=== PATIENT | male | born 1970 | race Caucasian/White ===

== ENCOUNTER 2017-03-17 09:56 | Inpatient (IN) | payer OTHER, MEDICAID ==
--- NOTE | 2017-03-17 10:03 | EDPHY ---
H & P Time Seen by Provider: 03/17/17 10:03 HPI/ROS: CHIEF COMPLAINT: pneumonia and not eating HISTORY OF PRESENT ILLNESS: Patient arrives from [facility] with a diagnosis of pneumonia but no chart is available for review. On speaking with the nursing home social worker, chest x-ray was obtained which apparently showed pneumonia. Order for IV antibiotics but IV access unable to be obtained. According to her the [id number] requested evaluation for dehydration as the patient has not been eating or drinking well over the past week. Further history and review of systems unavailable as the patient is nonverbal. PAST MEDICAL HISTORY: [place]'s chorea, anxiety, dysphagia, L hand contracture Social history: Resident at [facility] General Appearance: Alert spontaneously looks around. Eyes: No scleral icterus. ENT, Mouth: Dry mucous membranes. Respiratory: Normal respiratory effort, breath sounds equal, lungs are clear to auscultation. Cardiovascular: Regular rate and rhythm. Gastrointestinal: Abdomen is soft and non tender. Neurological: Patient is alert and looks around but is nonverbal. Moves all extremities. Skin: Warm and dry, no rashes. Musculoskeletal: Left arm contracture. Psychiatric: Unable, nonverbal Emergency Department course/MDM: Discussed with Lisa Metcalf from [facility] at 1014. Plan for chest x-ray and labs to include electrolytes. 1149: Discussed with Genna LOJA. Sent for admission secondary to can't eat, aspirating, needs plan for IV fluids or feeding tube prior to going back to [facility]. Noted streaky infiltrates on left chest Xray, Na 156; likely aspiration pneumonia and hypovolemia due to dehydration and decreased oral intake. Plan for IV ertapenem for probable aspiration pneumonia, does not have sepsis, elevated sodium likely due to dehydration. Constitutional: Initial Vital Signs Temperature (C) 36.6 C 03/17/17 09:56 Heart Rate 95 03/17/17 09:56 Respiratory Rate 16 03/17/17 09:56 Blood Pressure 140/90 H 03/17/17 09:56 O2 Sat (%) 93 03/17/17 09:56 O2 Delivery Mode Room Air Allergies/Adverse Reactions: No Known Allergies Allergy (Unverified 03/17/17 10:10) Home Medications: Medication Instructions Recorded Acetaminophen [Tylenol 325mg (*)] 650 mg PO BID 03/17/17 Cholecalciferol (Vitamin D3) 50,000 unit PO .MONTHLY 03/17/17 [Optimal D3] Haloperidol [Haldol 5 MG (*)] 5 mg PO DAILY 03/17/17 Hydrocodone/Acetaminophen [[place] 1 each PO Q4 PRN 03/17/17 5/325 (*)] Loratadine [Claritin] 10 mg PO DAILY PRN 03/17/17 Mineral Oil/Petrolatum,White 1 karen TP BID 03/17/17 [Eucerin Cream (*)] Ns [Ns *For Sepsis Order Set Only*] 0 ml IV CONT 03/17/17 cefTRIAXone [Rocephin 1 gm Vial 1 gm IV DAILY 03/17/17 (RX)ro] Medical Decision Making - Diagnostics Imaging Results: Imaging Impressions Chest X-Ray 03/17/17 10:17 Impression: Bronchitis with streaky left perihilar opacities that could be related to atelectasis or pneumonia. Differential Diagnosis: Considered multiple diagnoses including but not limited to UTI, pneumonia, metabolic abnormality, stroke or seizure. Consult/Admit Bed Type: [place] [id number] - Data Points Laboratory Results: Laboratory Results 03/17/17 10:37 03/17/17 10:37 03/17/17 03/17/17 03/17/17 11:20 10:42 10:37 WBC RBC Hgb Hct MCV MCH MCHC RDW Plt Count MPV Neut % (Auto) Lymph % (Auto) [place] % (Auto) Eos % (Auto) Baso % (Auto) Nucleat RBC Rel Count Absolute Neuts (auto) Absolute Lymphs (auto) Absolute Monos (auto) Absolute Eos (auto) Absolute Basos (auto) Absolute Nucleated RBC Immature Gran % Immature Gran # PT 14.1 SEC SEC (12.0-15.0) INR 1.10 (0.83-1.16) APTT 28.6 SEC SEC (23.0-38.0) VBG Lactic Acid 0.9 mmol/L mmol/L (0.7-2.1) Sodium Potassium Chloride Carbon Dioxide Anion Gap BUN Creatinine Estimated GFR Glucose Calcium Total Bilirubin Urine Color YELLOW Urine Appearance CLEAR Urine pH 5.0 (5.0-7.5) Ur Specific [place] 1.031 H (1.002-1.030) Urine Protein 1+ H (NEGATIVE) Urine Ketones NEGATIVE (NEGATIVE) Urine Blood NEGATIVE (NEGATIVE) Urine Nitrate NEGATIVE (NEGATIVE) Urine Bilirubin NEGATIVE (NEGATIVE) Urine Urobilinogen 2.0 EU H EU (0.2-1.0) Ur Leukocyte Esterase NEGATIVE (NEGATIVE) Urine RBC 1-3 /hpf /hpf (0-3) Urine WBC 1-3 /hpf /hpf (0-3) Ur Epithelial Cells NONE SEEN /lpf /lpf (NONE-1+) Urine Mucus 1+ /lpf /lpf (NONE-1+) Urine Glucose NEGATIVE (NEGATIVE) 03/17/17 03/17/17 10:37 10:37 WBC 10.50 10^3/uL H 10^3/uL (3.80-9.50) RBC 5.01 10^6/uL 10^6/uL (4.40-6.38) Hgb 15.0 g/dL g/dL (13.7-17.5) Hct 45.1 % % (40.0-51.0) MCV 90.0 fL fL (81.5-99.8) MCH 29.9 pg pg (27.9-34.1) MCHC 33.3 g/dL g/dL (32.4-36.7) RDW 12.0 % % (11.5-15.2) Plt Count 260 10^3/uL 10^3/uL (150-400) MPV 9.8 fL fL (8.7-11.7) Neut % (Auto) 81.0 % H % (39.3-74.2) Lymph % (Auto) 12.1 % L % (15.0-45.0) Carolina % (Auto) 6.2 % % (4.5-13.0) Eos % (Auto) 0.1 % L % (0.6-7.6) Baso % (Auto) 0.2 % L % (0.3-1.7) Nucleat RBC Rel Count 0.0 % % (0.0-0.2) Absolute Neuts (auto) 8.51 10^3/uL H 10^3/uL (1.70-6.50) Absolute Lymphs (auto) 1.27 10^3/uL 10^3/uL (1.00-3.00) Absolute Monos (auto) 0.65 10^3/uL 10^3/uL (0.30-0.80) Absolute Eos (auto) 0.01 10^3/uL L 10^3/uL (0.03-0.40) Absolute Basos (auto) 0.02 10^3/uL 10^3/uL (0.02-0.10) Absolute Nucleated RBC 0.00 10^3/uL 10^3/uL (0-0.01) Immature Gran % 0.4 % % (0.0-1.1) Immature Gran # 0.04 10^3/uL 10^3/uL (0.00-0.10) PT INR APTT VBG Lactic Acid Sodium 156 mEq/L H mEq/L (134-144) Potassium 3.8 mEq/L mEq/L (3.5-5.2) Chloride 118 mEq/L H mEq/L (97-110) Carbon Dioxide 25 mEq/l mEq/l (22-31) Anion Gap 13 mEq/L mEq/L (8-16) BUN 22 mg/dL mg/dL (7-23) Creatinine 0.7 mg/dL mg/dL (0.7-1.3) Estimated GFR > 60 Glucose 100 mg/dL mg/dL (70-100) Calcium 9.2 mg/dL mg/dL (8.5-10.4) Total Bilirubin 1.2 mg/dL mg/dL (0.1-1.4) Urine Color Urine Appearance Urine pH Ur Specific [place]kinson Urine Protein Urine Ketones Urine Blood Urine Nitrate Urine Bilirubin Urine Urobilinogen Ur Leukocyte Esterase Urine RBC Urine WBC Ur Epithelial Cells Urine Mucus Urine Glucose Medications Given: Discontinued Medications Ertapenem 1 gm/ Sodium (Chloride) 100 mls @ 200 mls/hr IV EDNOW ONE PRN Reason: Protocol Stop: 03/17/17 12:31 Last Admin: 03/17/17 12:37 Dose: 100 mls Sodium Chloride (Ns) 1,000 mls @ 0 mls/hr IV ONCE ONE; Wide Open PRN Reason: Protocol Stop: 03/17/17 12:11 Last Admin: 03/17/17 12:25 Dose: 1,000 mls Departure - Departure Disposition: [facility] Inpatient Acute Clinical Impression: Aspiration pneumonia Qualifiers: Aspiration pneumonia type: unspecified Laterality: left Lung location: unspecified part of lung Qualified Code(s): J69.0 - Pneumonitis due to inhalation of food and vomit Condition: Good
[2017-03-17 10:48] LABS: % IMMATURE GRANULYOCYTES 0.4 % (0.0-1.1); ABSOLUTE IMMATURE GRANULOCYTES 0.04 10^3/uL (0.00-0.10); ADD DIFF? NO; ADD MORPH? NO; ADD SCAN? NO; ATYPICAL LYMPHOCYTE FLAG 50 (0-99); FRAGMENT RBC FLAG 0 (0-99); HEMATOCRIT 45.1 % (40.0-51.0); LEFT SHIFT FLG 20 (0-99); LIPEMIA HEMOLYSIS FLAG 80 (0-99); MEAN CELL HEMOGLOBIN 29.9 pg (27.9-34.1); MEAN CELL HEMOGLOBIN CONCENTR. 33.3 g/dL (32.4-36.7); MEAN PLATELET VOLUME 9.8 fL (8.7-11.7); PLATELET CLUMPS FLAG 0 (0-99); PLATELET COUNT 260 10^3/uL (150-400); RED BLOOD CELL COUNT 5.01 10^6/uL (4.40-6.38)
[2017-03-17 10:55] LABS: INR 1.1 (0.83-1.16); PROTIME(PATIENT) 14.1 SEC (12.0-15.0)
[2017-03-17 10:56] LABS: APTT 28.6 SEC (23.0-38.0)
[2017-03-17 11:20] LABS: BILIRUBIN,TOTAL 1.2 mg/dL (0.1-1.4); CALCIUM 9.2 mg/dL (8.5-10.4); CARBON DIOXIDE 25 mEq/l (22-31); CHLORIDE 118 mEq/L (97-110); CREATININE 0.7 mg/dL (0.7-1.3); GLOMERULAR FILTRATION RATE > 60; GLUCOSE 100 mg/dL (70-100); SODIUM 156 mEq/L (134-144)
[2017-03-17 11:28] LABS: ANION GAP 13 mEq/L (8-16); POTASSIUM 3.8 mEq/L (3.5-5.2)
[2017-03-17] MEDS ORDERED: ERTAPENEM 1 GM in NS 100 ML IV ONE (12:02)
[2017-03-17 12:07] LABS: COLOR YELLOW; LEUKOCYTE ESTERASE,URINE NEGATIVE (NEGATIVE); NITRITE,URINE NEGATIVE (NEGATIVE)
[2017-03-17 12:09] LABS: MUCUS 1+ /lpf (NONE-1+)
[2017-03-17] MEDS ORDERED: NS 1,000 ML IV ONE (12:10)
[2017-03-17] MEDS ORDERED: ONDANSETRON 4 MG/2 ML VIAL IVP PRN (13:21)
[2017-03-17] MEDS ORDERED: ACETAMINOPHEN 325 MG TAB PO PRN (13:21)
--- NOTE | 2017-03-17 14:09 | GHP ---
[f rep st] HISTORY AND PHYSICAL DATE OF ADMISSION: 03/17/2017 CHIEF COMPLAINT: Poor p.o. intake. 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 He has known dysphagia and is on a pureed diet with honey thick liquids. They did a chest x-ray at [facility] and thought he had aspiration pneumonia. They prescribed IV antibiotics, so they could not get IV access at [facility], so they sent him to the emergency room. Reportedly, his power of state attorney, was also concern for dehydration, as he has had poor p.o. intake for the last week. The patient is completely nonverbal, and I cannot get any further history from him at this [facility]. It is unclear whether or not there has been any recent cough. I do not believe there has been a fever. PAST MEDICAL HISTORY: 1. [place]'s chorea. 2. Dysphagia, on pureed diet with honey thick liquids. MEDICATIONS: Please see computer record for full detailed list. ALLERGIES: No known drug allergies. SOCIAL HISTORY: At [facility], per records, since 2009. He is a DNR. Unknown smoking and alcohol history, but presumably none since he has been at [facility]. REVIEW OF SYSTEMS: Review of systems is unobtainable due to patient's nonverbal status. FAMILY HISTORY: Unobtainable due to patient's nonverbal status. Presumably there would be a family history of [place]'s chorea. PHYSICAL EXAMINATION: GENERAL: This is a well-developed, thin male, with dramatic chorea type move ments, nonverbal, agitated, not following commands. VITAL SIGNS: Temp is 36.6, pulse 86, blood pressure 127/89, satting 93% on room air. EYES: Normal conjunctivae. Pupils react to light. ENT: Normal ears and nose. Unable to assess h earing, unable to assess oropharynx as his jaw is clenched. NECK: Trachea midline. No thyromegaly . CHEST: Normal effort. Lungs clear to auscultation bilaterally. CARDIOVASCULAR: Regular rate and rhythm. No murmur. No lower extremity edema. ABDOMEN: Soft, nontender. No hepatosplenomegaly. SKIN: Warm, dry, intact . No rash. MUSCULOSKELETAL: No cyanosis or clubbing. NEURO: He is flailing extremities, not fol lowing commands. Unable to assess cranial nerves, as he does not follow commands. Unable to assess sensation due to nonverbal status. PSYCH: He appears agitated, disoriented. I do not believe he is currently interacting with me appropriately in any way. LABS: White count 10.5, hematocrit 45.0, platelets 260. Sodium 156, potassium 3.8, chloride 118, b icarb 25, BUN 22, creatinine 0.7, glucose 100. Chest x-ray is negative. MEDICAL RECORD REVIEW: He presents from [facility] with records, it appears he does follow a modifi ed diet. They ordered ceftriaxone for IV antibiotics regarding his pneumonia. His code status at [facility] is DNR. ASSESSMENT AND PLAN: 1. Hypernatremia secondary to hypovolemia. The goal will be very slow correction. We will start w ith IV normal saline to correct his hypovolemia, and then if hyponatremia persists, can switch to anderson lf-normal or D5 water once euvolemic state is achieved. We will follow q.4 hour basic metabolic nicolas els. Goal is to correct around 8 mEq/L in the first 24 hours. 2. Possible aspiration pneumonia. Chest x-ray is not terribly remarkable, although, very high risk for an aspiration type event. We will continue IV Invanz. 3. Dysphagia. On a puree diet with honey thickened liquids at baseline. We will consult speech th leslie. I am highly concerned for his ongoing ability to maintain adequate oral intake, given his pr esentation of severe hypernatremia. If n.p.o. is recommended by speech therapy, we will need to inv olve palliative care and discussed with his power of state attorney whether or not a PEG tube and artifici al nutrition where at any point consistent with his long-term wishes. 4. 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 CODE STATUS: DNR. ADMISSION STATUS: We will admit to inpatient as he is medically complex. Anticipate greater than 2 midnights. DVT PROPHYLAXIS: He is high risk. We will place on subcu Lovenox. /[id number]/MODL
[2017-03-17] MEDS: NS 1,000 ML IV SCH ×2 (14:44→23:45)
[2017-03-17] MEDS ORDERED: NON-FORMULARY NEW DRUG (Loratadine [Claritin] 10 MG) PO PRN (15:54)
[2017-03-17] MEDS ORDERED: HYDROCODONE/APAP 5/325 TAB PO PRN (15:54)
[2017-03-17 16:10] LABS: ANION GAP 11 mEq/L (8-16); CALCIUM 8.7 mg/dL (8.5-10.4); CARBON DIOXIDE 24 mEq/l (22-31); CHLORIDE 119 mEq/L (97-110); CREATININE 0.7 mg/dL (0.7-1.3); GLOMERULAR FILTRATION RATE > 60; GLUCOSE 95 mg/dL (70-100); POTASSIUM 3.9 mEq/L (3.5-5.2); SODIUM 154 mEq/L (134-144)
[2017-03-17] MEDS ORDERED: CETIRIZINE 10 MG TAB PO PRN (16:27)
[2017-03-17 20:57] LABS: ANION GAP 9 mEq/L (8-16); CALCIUM 8.9 mg/dL (8.5-10.4); CARBON DIOXIDE 25 mEq/l (22-31); CHLORIDE 119 mEq/L (97-110); CREATININE 0.7 mg/dL (0.7-1.3); GLOMERULAR FILTRATION RATE > 60; GLUCOSE 98 mg/dL (70-100); POTASSIUM 3.8 mEq/L (3.5-5.2); SODIUM 153 mEq/L (134-144)
[2017-03-17] MEDS: EUCERIN/HYDROCERIN CREAM 120GM JAR TP SCH (21:43)
[2017-03-17] MEDS: ACETAMINOPHEN 325 MG TAB PO SCH (21:43)
[2017-03-18 02:13] LABS: ANION GAP 11 mEq/L (8-16); CARBON DIOXIDE 22 mEq/l (22-31); CHLORIDE 119 mEq/L (97-110); CREATININE 0.6 mg/dL (0.7-1.3); GLOMERULAR FILTRATION RATE > 60; GLUCOSE 91 mg/dL (70-100); POTASSIUM 4.2 mEq/L (3.5-5.2); SODIUM 152 mEq/L (134-144)
[2017-03-18 05:25] LABS: % IMMATURE GRANULYOCYTES 0.8 % (0.0-1.1); ABSOLUTE IMMATURE GRANULOCYTES 0.07 10^3/uL (0.00-0.10); ADD DIFF? NO; ADD MORPH? NO; ADD SCAN? NO; ATYPICAL LYMPHOCYTE FLAG 60 (0-99); FRAGMENT RBC FLAG 0 (0-99); HEMATOCRIT 40.6 % (40.0-51.0); HEMOGLOBIN 13.3 g/dL (13.7-17.5); LEFT SHIFT FLG 10 (0-99); LIPEMIA HEMOLYSIS FLAG 80 (0-99); MEAN CELL HEMOGLOBIN CONCENTR. 32.8 g/dL (32.4-36.7); MEAN CELL VOLUME 91.6 fL (81.5-99.8); MEAN PLATELET VOLUME 10.7 fL (8.7-11.7); PLATELET CLUMPS FLAG 0 (0-99); PLATELET COUNT 257 10^3/uL (150-400); RED BLOOD CELL COUNT 4.43 10^6/uL (4.40-6.38); RED CELL DISTRIBUTION WIDTH 11.9 % (11.5-15.2)
[2017-03-18 05:36] LABS: ANION GAP 8 mEq/L (8-16); CALCIUM 9.1 mg/dL (8.5-10.4); CARBON DIOXIDE 25 mEq/l (22-31); CHLORIDE 117 mEq/L (97-110); CREATININE 0.7 mg/dL (0.7-1.3); GLOMERULAR FILTRATION RATE > 60; GLUCOSE 87 mg/dL (70-100); POTASSIUM 4.1 mEq/L (3.5-5.2); SODIUM 150 mEq/L (134-144)
[2017-03-18] MEDS: ENOXAPARIN 40 MG/0.4 ML SYR SC SCH (08:08)
[2017-03-18] MEDS: HALOPERIDOL 5 MG TAB PO SCH (08:08)
[2017-03-18] MEDS: ACETAMINOPHEN 325 MG TAB PO SCH ×2 (08:08→20:20)
[2017-03-18] MEDS: EUCERIN/HYDROCERIN CREAM 120GM JAR TP SCH (10:17)
[2017-03-18] MEDS: ERTAPENEM 1 GM in NS 100 ML IV SCH (10:17)
[2017-03-18 12:30] LABS: ANION GAP 8 mEq/L (8-16); CALCIUM 8.5 mg/dL (8.5-10.4); CARBON DIOXIDE 23 mEq/l (22-31); CHLORIDE 116 mEq/L (97-110); CREATININE 0.5 mg/dL (0.7-1.3); GLOMERULAR FILTRATION RATE > 60; GLUCOSE 98 mg/dL (70-100); POTASSIUM 3.6 mEq/L (3.5-5.2); SODIUM 147 mEq/L (134-144)
--- NOTE | 2017-03-18 14:38 | HOSPPROG ---
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 * Dysphagia -pureed/honey thick diet -VFSS in am -palliative care consult - unclear if he has pre-determined wishes regarding possible PEG * Possible aspiration PNA -IV Invanz Subjective: Nonverbal Objective: Vital Signs Temp Pulse Resp BP Pulse Ox 36.6 C 62 20 124/78 H 95 03/18/17 08:11 03/18/17 08:11 03/18/17 08:11 03/18/17 08:11 03/18/17 08:11 Laboratory Results 03/18/17 04:57 03/18/17 12:06 03/17/17 03/18/17 03/19/17 05:59 05:59 05:59 Intake Total 1100 100 Balance 1100 100 PT 14.1 SEC (12.0-15.0) 03/17/17 10:37 INR 1.10 (0.83-1.16) 03/17/17 10:37 - Physical Exam Constitutional: no apparent distress, appears nourished, not in pain Cardiovascular: regular rate and rhythym, no murmur, rub, or gallop Respiratory: no respiratory distress, no rales or rhonchi, clear to auscultation Gastrointestinal: normoactive bowel sounds, soft, non-tender abdomen, no palpable masses Skin: no rashes or abrasions, no fluctuance, no induration Neurologic: No AAOx3 Psychiatric: encephalopathic (non-verbal, unable to assess, follows commands only inconsistently), anxious, No interacting appropriately, No agitated ICD10 Worksheet Patient Problems: Problems Problem Status Onset Aspiration pneumonia Acute
[2017-03-18] MEDS ORDERED: 1/2 NS 1,000 ML IV SCH (15:00)
[2017-03-19] MEDS: EUCERIN/HYDROCERIN CREAM 120GM JAR TP SCH ×3 (01:43→21:30)
[2017-03-19 05:53] LABS: ANION GAP 6 mEq/L (8-16); CALCIUM 8.8 mg/dL (8.5-10.4); CARBON DIOXIDE 22 mEq/l (22-31); CHLORIDE 115 mEq/L (97-110); CREATININE 0.6 mg/dL (0.7-1.3); GLOMERULAR FILTRATION RATE > 60; GLUCOSE 84 mg/dL (70-100); SODIUM 143 mEq/L (134-144)
[2017-03-19] MEDS: ERTAPENEM 1 GM in NS 100 ML IV SCH (08:48)
[2017-03-19] MEDS: ACETAMINOPHEN 325 MG TAB PO SCH ×2 (08:48→21:28)
[2017-03-19] MEDS: HALOPERIDOL 5 MG TAB PO SCH (08:48)
[2017-03-19] MEDS: ENOXAPARIN 40 MG/0.4 ML SYR SC SCH (08:48)
--- NOTE | 2017-03-19 10:31 | HOSPPROG ---
Hospitalist Progress Note Assessment/Plan: DIAGNOSES: -acute dehydration -poor oral intake related to advanced [place]'s chorea -question of possible aspiration pneumonia -nonverbal and really non communicative due to his neurologic disease PLANS: -at this time can stop IV fluids -will need to watch his oral fluid intake very carefully here, he may need to be manually fed. If he is unable to take in sufficient oral fluids may need to discuss with his power of recreation specialist whether there are previously determined wishes to have or avoid artificial feeding as in placement of a PEG tube -will continue empiric antibiotics for possible pneumonia at this time SUBJECTIVE: Entirely non communicative to his chronic neurologic disease so symptom assessment not possible OBJECTIVE Vitals reviewed: Stable without fever Exam: alert, seems aware of my presence but does not make eye contact Mild choreiform movements are present skin warm dry with good turgor color ok resps not labored lungs clear BSs heart regular abd soft nondistended, bowel sounds present limbs warm, no edema iv site ok Laboratory data: Sodium now normal, renal function stable Objective: Vital Signs Temp Pulse Resp BP Pulse Ox 37.0 C 54 L 18 106/66 94 03/19/17 08:30 03/19/17 08:30 03/19/17 08:30 03/19/17 08:30 03/19/17 08:30 Laboratory Results 03/18/17 04:57 03/19/17 05:22 03/18/17 03/19/17 03/20/17 06:59 06:59 06:59 Intake Total 1100 2450 Balance 1100 2450 PT 14.1 SEC (12.0-15.0) 03/17/17 10:37 INR 1.10 (0.83-1.16) 03/17/17 10:37 ICD10 Worksheet Patient Problems: Problems Problem Status Onset Aspiration pneumonia Acute
--- NOTE | 2017-03-19 15:42 | PDPCPN ---
Palliative Care Progress Note Assessment/Plan: Referring provider: Dr James Reason for consult: Complex medical decision making Symptom control HPI: Markus Nation is a 46 yo male with PMH Ysabel's disease admitted to the hospital for possible aspiration PNA. Started on IV antibiotics after outpt CXR with possible PNA. Hx of dysphagia on dysphagia diet. Speech following and unable to complete swallow eval due to patient positioning. At baseline bed bound, complete care, and non verbal. Palliative care consulted for complex medical decision making. Markus seen this morning. Non verbal but alert and appears comfortable, in no distress. Spoke with Genna Chambers and per her conversations with Markus 3 years ago his wish has always been for artificial nutrition if indicated. She states [place] has been trying aspiration precautions and altered diet with the hopes of avoiding a PEG tube for the past several months. She feels Markus would want a PEG tube if needed. Genna stated Markus has 1 brother who also has [place]'s and another brother who does not but lives out of state and only visits on occasion. She feels his quality of life is pretty good with having dementia but able to watch tv and listen to people. She states he does not verbally interact but sits up in a chair at [place] for long periods of time. Assessment: Physical: - Pain: appears comfortable - tylenol PRN - dysphagia: - speech following - on pureed with honey thick liquids - monitor for s/s of aspiration Emotional/psychological: calm. Non verbal Advanced Care Planning: Is patient decisional?: No Code Status: DNR POA: Guardian Genna Chambers. Plan: Suggest calorie count with strict aspiration precautions. If PEG is indicated than consult GI. Guardian can be reached at [phone] or email [email or web address]. Genna is out of town until Sunday. 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 Medication list reviewed ROS: unable to obtain Functional assessment: PPS: 30% Functional status: dependent on ADLs, IADLs Vital Signs Temp Pulse Resp BP Pulse Ox 37.0 C 54 L 18 106/66 94 03/19/17 08:30 03/19/17 08:30 03/19/17 08:30 03/19/17 08:30 03/19/17 08:30 Laboratory Results 03/18/17 04:57 03/19/17 05:22 03/18/17 03/19/17 03/20/17 05:59 05:59 05:59 Intake Total 1100 2450 480 Balance 1100 2450 480 PT 14.1 SEC (12.0-15.0) 03/17/17 10:37 INR 1.10 (0.83-1.16) 03/17/17 10:37 Physical Exam - Physical Exam General Appearance: alert, no apparent distress Respiratory: No respiratory distress, No accessory muscle use Skin: normal color, warm/dry Extremities: No pedal edema Neuro/Psych: alert, disoriented to person, disoriented to place, disoriented to time, other (nonverbal) ICD10 Worksheet Patient Problems: Problems Problem Status Onset Aspiration pneumonia Acute Palliative care encounter Acute - ICD10 Problem Qualifiers (1) Palliative care encounter
[2017-03-20] MEDS: ERTAPENEM 1 GM in NS 100 ML IV SCH (08:15)
[2017-03-20] MEDS: HALOPERIDOL 5 MG TAB PO SCH (08:15)
[2017-03-20] MEDS: ACETAMINOPHEN 325 MG TAB PO SCH ×2 (08:15→22:11)
--- NOTE | 2017-03-20 09:48 | HOSPPROG ---
Hospitalist Progress Note Assessment/Plan: DIAGNOSES: -acute dehydration -poor oral intake related to advanced [place]'s chorea w dysphagia -she has been assessed by speech pathology who do not feel he will be successful in swallowing rehab; his POA has stated to us that he had always stated he would want feeding tube when he was still communicative; I have asked Dr Chu to see him for feeding tube -question of possible aspiration pneumonia -stable on antibiotic which was actually started at SNF before admission here -acute watery diarrhea, risk for C diff -[place]ons chorea / nonverbal, non-communicative due to his neurologic disease PLANS: -will need to resume IV fluids due to unable to swallow safely or sufficiently, and with diarrhea -Dr Chu will see for perc gastrostomy tube placement -check stool for C diff -will continue empiric antibiotics for possible pneumonia at this time SUBJECTIVE: Entirely non communicative to his chronic neurologic disease so symptom assessment not possible OBJECTIVE Vitals reviewed: Stable without fever Exam: alert, seems aware of my presence but does not respond to anything I say or do, unable to speak Mild choreiform movements are present skin warm dry with good turgor color ok resps not labored lungs clear BSs heart regular abd soft nondistended, bowel sounds present limbs warm, no edema iv site ok Objective: Vital Signs Temp Pulse Resp BP Pulse Ox 36.8 C 61 16 93/65 L 94 03/20/17 07:59 03/20/17 07:59 03/20/17 07:59 03/20/17 07:59 03/20/17 07:59 Laboratory Results 03/18/17 04:57 03/19/17 05:22 03/19/17 03/20/17 03/21/17 06:59 06:59 06:59 Intake Total 2450 1200 Balance 2450 1200 PT 14.1 SEC (12.0-15.0) 03/17/17 10:37 INR 1.10 (0.83-1.16) 03/17/17 10:37 - Time Spent With Patient Time Spent with Patient: greater than 35 minutes Time Spent with Patient: Greater than 35 minutes spent on this patients care, greater than 50% of time spent counseling, educating, and coordinating care regarding the above mentioned plan. ICD10 Worksheet Patient Problems: Problems Problem Status Onset Aspiration pneumonia Acute Palliative care encounter Acute
--- NOTE | 2017-03-20 13:43 | PDANEPAE ---
ANE Past Medical History Past Medical History: Sel[place]'s chorea - advanced. Non verbal, unable to take orals. DNR. Dysphagia /contractures/generalized anxiety disorder. Weight loss x2 weeks/gagging/emesis with meals, dehydrated, suspected aspiration pneumonia. - Cardiovascular History Hx Hypertension: No Hx Arrhythmias: No Hx Chest Pain: No Hx Coronary Artery / Peripheral Vascular Disease: No Hx CHF / Valvular Disease: No Hx Palpitations: No - Pulmonary History Hx COPD: No Hx Asthma/Reactive Airway Disease: No Hx Recent Upper Respiratory Infection: Yes Hx Oxygen in Use at Home: No - Endocrine History Hx Diabetes: No Hypothyroid: No Hyperthyroid: No - Renal History Hx Renal Disorders: No - Liver History Hx Hepatic Disorders: No - Neurological & Psychiatric Hx Hx Neurological and Psychiatric Disorders: Yes - Cancer History Hx Cancer: No - Congenital Disorder History Hx Congenital Disorders: No - GI History Hx Gastrointestinal Disorders: No ANE Patient History - Allergies Allergies/Adverse Reactions: No Known Allergies Allergy (Unverified 03/19/17 17:41) - Home Medications Home Medications: Acetaminophen [Tylenol 325mg (*)] 650 mg PO BID 03/17/17 [Last Taken 03/17/17 09 :00] Cholecalciferol (Vitamin D3) [Optimal D3] 50,000 unit PO .MONTHLY 03/17/17 [ Last Taken 02/17/17] Haloperidol [Haldol 5 MG (*)] 5 mg PO DAILY 03/17/17 [Last Taken 03/16/17] Hydrocodone/Acetaminophen [[place] 5/325 (*)] 1 each PO Q4 PRN 03/17/17 [Last Taken 03/05/17] Loratadine [Claritin] 10 mg PO DAILY PRN 03/17/17 [Last Taken Unknown] Mineral Oil/Petrolatum,White [Eucerin Cream (*)] 1 karen TP BID 03/17/17 [Last Taken 03/17/17] Ns [Ns *For Sepsis Order Set Only*] 0 ml IV CONT 03/17/17 [Last Taken 03/16/17] cefTRIAXone [Rocephin 1 gm Vial (RX)ro] 1 gm IV DAILY 03/17/17 [Last Taken 03/16] - NPO status NPO Since - Liquids (Date): 03/19/17 NPO Since - Liquids (Time): 00:00 NPO Since - Solids (Date): 06/19/17 NPO Since - Solids (Time): 00:00 - Anes Hx Anes Hx: no prior problems - Smoking Hx Smoking Status: Unknown if ever smoked - Alcohol Use Alcohol Use: None (all history obtained from care facility notes and guardian; pt non verbal) ANE Labs/Vital Signs - Labs Result Diagrams: 03/18/17 04:57 03/19/17 05:22 - Vital Signs Blood Pressure: 93/65 Heart Rate: 61 Respiratory Rate: 16 O2 Sat (%): 94 Height: 167.64 cm Weight: 54.431 kg ANE Physical Exam - ASA Status ASA Status: IV ANE Anesthesia Plan Anesthesia Plan: GA w LMA
[2017-03-20] MEDS ORDERED: DEXAMETHASONE 4 MG/ML VIAL ONE (14:34)
[2017-03-20] MEDS ORDERED: fentaNYL 100 MCG/2 ML INJ ONE ×2 (14:34→15:21)
[2017-03-20] MEDS ORDERED: PROPOFOL 200 MG/20 ML VIAL ONE (14:35)
[2017-03-20] MEDS ORDERED: LIDOCAINE 2% 5 ML SDV ONE (14:35)
--- NOTE | 2017-03-20 15:35 | POSTOPPROG ---
Post Op Note Date of Operation: 03/20/17 Surgeon: Modesta Chu Anesthesiologist: Dr. Delatorre Anesthesia: GET(General Endotracheal) Pre-op Diagnosis: Izard's Dz; malnutrition Post-op Diagnosis: same Indication: difficulties with feeding Procedure: G-tube placement Findings: Hard muscularature in abd. Inf/Abcess present in the surg proc area at time of surgery?: No Depth: Superfical (Skin SQ) EBL: Minimal Complications: None immediately.
[2017-03-20] MEDS ORDERED: NALOXONE HCL 0.4 MG/ML INJ IVP PRN (15:48)
[2017-03-20] MEDS ORDERED: fentaNYL 100 MCG/2 ML INJ IVP PRN (15:48)
[2017-03-20] MEDS ORDERED: ONDANSETRON 4 MG/2 ML VIAL IVP PRN (15:48)
--- NOTE | 2017-03-20 15:51 | POSTANESTH ---
Post Anesthetic Evaluation Cardiovascular Status: Normal, Stable Respiratory Status: Normal, Stable Level of Consciousness/Mental Status: Other, See Comment (pt non-verbal unable to follow commands pre-op. Same post-op.) Complications Possibly Related to Anesthesia: Other, See Comments (Uncertain if pt having pain or nausea. Based on VS, suspect not significant pain. No retching currently.)
[2017-03-20] MEDS: EUCERIN/HYDROCERIN CREAM 120GM JAR TP SCH ×2 (18:20→22:13)
[2017-03-21] MEDS: ACETAMINOPHEN 325 MG TAB PO SCH ×2 (08:57→20:33)
[2017-03-21] MEDS: ENOXAPARIN 40 MG/0.4 ML SYR SC SCH (08:57)
[2017-03-21] MEDS: ERTAPENEM 1 GM in NS 100 ML IV SCH ×3 (08:57→10:36)
[2017-03-21] MEDS: HALOPERIDOL 5 MG TAB PO SCH (08:58)
[2017-03-21] MEDS: EUCERIN/HYDROCERIN CREAM 120GM JAR TP SCH ×2 (09:09→20:45)
--- NOTE | 2017-03-21 13:31 | HOSPPROG ---
Hospitalist Progress Note Assessment/Plan: 46 yo M with PMH of end stage Carmine's chorea presenting with worsening dysphagia and concerns for aspiration pna # Carmine's chorea: end stage at this point, patient now non verbal and completely dependent in all his needs. # dysphagia: in setting of above and progressed to where he was no longer able to take PO. G tube placed yesterday, will begin TF's today. # aspiration pneumonia vs aspiration pneumonitis: personally reviewed both xrays taken since admission, there is suggestion of possible mild left lower lobe pna present, though pneumonitis or atelectasis also possible. Has had 4 days invanz w/o clinical s/s of pna at this point. Will transition to augment for another 3 days # hypernatremia: due to hypovoelmia and poor po intake, resolved, will adjust fluid intake per g tube # DNR IP status, multiple active issues at presentatin Dc back to [place] likely tomorrow if tolerating tube feeds Subjective: patient non verbal, no significant overnight events Objective: Vital Signs Temp Pulse Resp BP Pulse Ox 36.5 C 60 16 99/69 L 95 03/21/17 11:31 03/21/17 11:31 03/21/17 11:31 03/21/17 11:31 03/21/17 11:31 Microbiology 03/20/17 08:30 Gastrointestinal Tract Panel (PCR) - Final Stool No Organism Detected Laboratory Results 03/18/17 04:57 03/19/17 05:22 03/20/17 03/21/17 03/22/17 05:59 05:59 05:59 Intake Total 1200 750 Output Total 3 200 Balance 1200 747 -200 PT 14.1 SEC (12.0-15.0) 03/17/17 10:37 INR 1.10 (0.83-1.16) 03/17/17 10:37 chronically ill appearing anicteric op clear rrr no mrg cta to ant exam soft gtube cdi/ no surrounding erythema no cce warm dry well perfused - Time Spent With Patient Time Spent with Patient: greater than 35 minutes Time Spent with Patient: Greater than 35 minutes spent on this patients care, greater than 50% of time spent counseling, educating, and coordinating care regarding the above mentioned plan. ICD10 Worksheet Patient Problems: Problems Problem Status Onset Aspiration pneumonia Acute Palliative care encounter Acute
[2017-03-22] MEDS ORDERED: ACETAMINOPHEN 325 MG TAB TUBE PRN (08:33)
[2017-03-22] MEDS ORDERED: HYDROCODONE/APAP 5/325 TAB TUBE PRN (08:34)
[2017-03-22] MEDS ORDERED: CETIRIZINE 10 MG TAB TUBE PRN (08:34)
[2017-03-22] MEDS ORDERED: AMOXICILLIN/CLAVULANATE POT 875/125 MG TAB PO SCH (09:00)
[2017-03-22] MEDS: HALOPERIDOL 5 MG TAB TUBE SCH (09:51)
[2017-03-22] MEDS: ACETAMINOPHEN 325 MG TAB TUBE SCH ×2 (09:51→20:58)
[2017-03-22] MEDS: AMOX TR/K CLAV 400 MG/5 ML 100ML BULK BTL TUBE SCH ×2 (09:51→20:59)
[2017-03-22] MEDS: ENOXAPARIN 40 MG/0.4 ML SYR SC SCH (09:52)
--- NOTE | 2017-03-22 09:57 | PDIAF ---
- Diagnosis Code Status: Do Not Resuscitate - Medication Management Discharge Medications: Medications to Continue on Transfer Acetaminophen [Tylenol 325mg (*)] 650 mg PO BID 03/17/17 [Last Taken 03/17/17 09 :00] Cholecalciferol (Vitamin D3) [Optimal D3] 50,000 unit PO .MONTHLY 03/17/17 [ Last Taken 02/17/17] Haloperidol [Haldol 5 MG (*)] 5 mg PO DAILY 03/17/17 [Last Taken 03/16/17] Hydrocodone/Acetaminophen [[place] 5/325 (*)] 1 each PO Q4 PRN 03/17/17 [Last Taken 03/05/17] Loratadine [Claritin] 10 mg PO DAILY PRN 03/17/17 [Last Taken Unknown] Mineral Oil/Petrolatum,White [Eucerin Cream (*)] 1 karen TP BID 03/17/17 [Last Taken 03/17/17] Acetaminophen [Tylenol 325mg (*)] 650 mg TUBE Q4 PRN #0 tab 03/22/17 [Last Taken Unknown] Amox Tr/Potassium Clavulanate [Augmentin 400MG/5ML (*)] 875 mg TUBE BID #6 bottle 03/22/17 [Last Taken Unknown] Discharge Medications: Refer to the Discharge Home Medication list for PRN reason. - Orders Services needed: Registered Nurse, Certified Manager Of Software, Physical Therapy, Occupational Therapy Diet Recommendation: other (tube feeds) Tube feeding: per tube feed orders Weigh Patient: weekly Sutures/Graciela Site: PEG tube sutures/fasteners to be removed in 7-10 days, needs to have follow up established with Interventional Radiology at [facility] Activity/Weight Bearing Restrictions: log roll q 2 hours - Labs/Radiology BMP Date: 03/28/17 - Follow Up Care Current Providers and Referrals: Patient,NotPresent [Unknown] - As per Instructions Modesta Chu MD [Medical Doctor] - (follow up in 7-10 days for suture removal and J tube check)
--- NOTE | 2017-03-22 09:57 | PDDCSUM ---
Discharge Summary Discharge Summary: Dates of service: 03/17-03/22/17 Discharge dx: # christie's chorea # chronic dysphagia # aspiration pna # hypernatremia Consultations: IR Procedures: PEG placement Hospital course by problem: # [place]'s chorea: end stage at this point, patient now non verbal and completely dependent in all his needs. # dysphagia: in setting of above and progressed to where he was no longer able to take PO. G tube placed yesterday, will begin TF's today. # aspiration pneumonia vs aspiration pneumonitis: personally reviewed both xrays taken since admission, there is suggestion of possible mild left lower lobe pna present, though pneumonitis or atelectasis also possible. Has had 4 days invanz w/o clinical s/s of pna at this point. Will complete short course of augmentin # hypernatremia: due to hypovoelmia and poor po intake, resolved, # DNR DC back to [facility]: see EHR > 35 minutes spent in dc more than half in coordination of care
[2017-03-22] MEDS: EUCERIN/HYDROCERIN CREAM 120GM JAR TP SCH ×2 (11:47→20:59)
--- NOTE | 2017-03-22 16:32 | HOSPPROG ---
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 # dysphagia: in setting of above and progressed to where he was no longer able to take PO. G tube placed yesterday, will begin TF's today. # aspiration pneumonia vs aspiration pneumonitis: Has completed 4 days invanz w/ o clinical s/s of pna at this point, complete course of augmentin # hypernatremia: due to hypovoelmia and poor po intake, resolved # DNR IP status, multiple active issues at presentatin Dc back to [place] tomorrow--unable to dc today as pump for TF was not available Subjective: no significant overnight events, non verbal Objective: Vital Signs Temp Pulse Resp BP Pulse Ox 36.3 C 66 16 123/75 H 98 03/22/17 10:00 03/22/17 10:00 03/22/17 10:00 03/22/17 10:00 03/22/17 10:00 Laboratory Results 03/18/17 04:57 03/19/17 05:22 03/21/17 03/22/17 03/23/17 05:59 05:59 05:59 Intake Total 750 900 Output Total 3 200 Balance 747 700 PT 14.1 SEC (12.0-15.0) 03/17/17 10:37 INR 1.10 (0.83-1.16) 03/17/17 10:37 chronically ill appearing anicteric op clear rrr no mrg cta to ant exam soft gtube cdi/ no surrounding erythema no cce warm dry well perfused ICD10 Worksheet Patient Problems: Problems Problem Status Onset Aspiration pneumonia Acute Palliative care encounter Acute
[2017-03-23] MEDS: AMOX TR/K CLAV 400 MG/5 ML 100ML BULK BTL TUBE SCH (09:28)
[2017-03-23] MEDS: HALOPERIDOL 5 MG TAB TUBE SCH (09:29)
[2017-03-23] MEDS: ACETAMINOPHEN 325 MG TAB TUBE SCH (09:29)
[2017-03-23] MEDS: ENOXAPARIN 40 MG/0.4 ML SYR SC SCH (09:29)
[2017-03-23] MEDS: EUCERIN/HYDROCERIN CREAM 120GM JAR TP SCH (09:29)
[2017-03-23 09:31] VITALS: BP 108/78; PULSE 68; RESP 15; TEMP 97.6; O2SAT 95
--- NOTE | 2017-03-23 10:33 | PDIAF ---
- Diagnosis Code Status: Do Not Resuscitate - Medication Management Discharge Medications: Medications to Continue on Transfer Acetaminophen [Tylenol 325mg (*)] 650 mg PO BID 03/17/17 [Last Taken 03/17/17 09 :00] Cholecalciferol (Vitamin D3) [Optimal D3] 50,000 unit PO .MONTHLY 03/17/17 [ Last Taken 02/17/17] Haloperidol [Haldol 5 MG (*)] 5 mg PO DAILY 03/17/17 [Last Taken 03/16/17] Hydrocodone/Acetaminophen [[place] 5/325 (*)] 1 each PO Q4 PRN 03/17/17 [Last Taken 03/05/17] Loratadine [Claritin] 10 mg PO DAILY PRN 03/17/17 [Last Taken Unknown] Mineral Oil/Petrolatum,White [Eucerin Cream (*)] 1 karen TP BID 03/17/17 [Last Taken 03/17/17] Acetaminophen [Tylenol 325mg (*)] 650 mg TUBE Q4 PRN #0 tab 03/22/17 [Last Taken Unknown] Amox Tr/Potassium Clavulanate [Augmentin 400MG/5ML (*)] 875 mg TUBE BID #6 bottle 03/22/17 [Last Taken Unknown] Discharge Medications: Refer to the Discharge Home Medication list for PRN reason. - Orders Services needed: Registered Nurse, Certified President Ceo [employer] Founder, Physical Therapy, Occupational Therapy Diet Recommendation: other Tube feeding: per tube feed orders Weigh Patient: weekly Sutures/Graciela Site: PEG tube sutures/fasteners to be removed in 7-10 days, needs to have follow up established with Interventional Radiology at [facility] Activity/Weight Bearing Restrictions: log roll q 2 hours - Labs/Radiology BMP Date: 03/28/17 - Follow Up Care Current Providers and Referrals: Modesta Chu MD [Medical Doctor] - (follow up in 7-10 days for suture removal and J tube check) Patient,NotPresent [Unknown] - As per Instructions
--- NOTE | 2017-03-23 10:33 | PDDCSUM ---
Discharge Summary Discharge Summary: Dates of service: 03/17-03/23/17 Discharge dx: # christie's chorea # chronic dysphagia # aspiration pna # hypernatremia Consultations: IR Procedures: PEG placement Hospital course by problem: # [place]'s chorea: end stage at this point, patient now non verbal and completely dependent in all his needs. # dysphagia: in setting of above and progressed to where he was no longer able to take PO. G tube placed yesterday, will begin TF's today. # aspiration pneumonia vs aspiration pneumonitis: personally reviewed both xrays taken since admission, there is suggestion of possible mild left lower lobe pna present, though pneumonitis or atelectasis also possible. Has had 4 days invanz w/o clinical s/s of pna at this point. Will complete short course of augmentin # hypernatremia: due to hypovoelmia and poor po intake, resolved, # DNR DC back to [facility]: see EHR > 35 minutes spent in dc more than half in coordination of care
== END 2017-03-23 13:05 | DRG 640 ==
LOC: F1N 13:13
PROVIDERS: ADMIT Internal Medicine; ATTEND Internal Medicine
PROC: 0DH63UZ Insertion of Feeding Device into Stomach, Percutaneous Approach (ICD-10-PCS; principal; 2017-03-20 15:40)
DX: E87.0 Hyperosmolality and hypernatremia (principal); R13.10 Dysphagia, unspecified; J69.0 Pneumonitis due to inhalation of food and vomit; G10 Huntington's disease; Z66 Do not resuscitate
CPT/HCPCS: 92523-GN; 92526-GN; 92610-GN; 96365; C1769; G8996-GN-CK; G8996-GN-CL; G8997-GN-CK; G8997-GN-CL; G8998-GN-CK; G9162-GN-CM; G9163-GN-CM; G9164-GN-CM; J1100; J1335; J1650; J2704; J3010

== ENCOUNTER → 2017-06-05 | Day surgery (SDC) | payer OTHER, MEDICAID ==
[~2017-06-05] MED LIST: IOPAMIDOL (ISOVUE-300) 100 ML BTL ONE
== END | disposition home or self-care (01) ==
LOC: FIMAGING 15:11
PROVIDERS: ATTEND Radiology Diagnostic Radiology
PROC: 0DH67UZ Insertion of Feeding Device into Stomach, Via Natural or Artificial Opening (ICD-10-PCS; principal; 2017-06-05)
DX: K94.23 Gastrostomy malfunction (principal); G10 Huntington's disease
CPT/HCPCS: 49450; C1729; C1769; Q9967

== ENCOUNTER 2017-09-21 15:08 | Emergency (ER) | payer OTHER, MEDICAID ==
[2017-09-21 15:27] VITALS: RESP 16
[2017-09-21] MEDS ORDERED: LIDOCAINE 2% JELLY 20 ML (UROJECT) ONE (15:43)
--- NOTE | 2017-09-21 16:00 | EDPHY ---
H & P Stated Complaint: G displaced Time Seen by Provider: 09/21/17 15:15 HPI/ROS: CHIEF COMPLAINT: Referred to ED for G-tube displacement HISTORY OF PRESENT ILLNESS: The patient has a history of [place] chorea and presented the ED after his G-tube was dislodged at the detention. The patient is nonverbal baseline is unable to provide additional history. By report from paramedics there has been no history of fever or vomiting. Remainder of history is unobtainable secondary to his chronic neurologic disease. REVIEW OF SYSTEMS: A comprehensive 10 point review of systems is unobtainable secondary to his neurologic disease. Source: Patient, EMS Exam Limitations: Clinical condition - Personal History Current Tetanus/Diphtheria Vaccine: Unsure Current Tetanus Diphtheria and Acellular Pertussis (TDAP): Unsure - Medical/Surgical History Hx Asthma: No Hx Chronic Respiratory Disease: No Hx Diabetes: No Hx Cardiac Disease: No Hx Renal Disease: No Hx Cirrhosis: No Hx Alcoholism: No Hx HIV/AIDS: No Hx Splenectomy or Spleen Trauma: No Other PMH: Huntingtons, parkinsonism, generalized anxiety, dysphagia, contracture - Social History Smoking Status: Unknown if ever smoked - Physical Exam Exam: General Appearance: Alert, chorea movements Eyes: Pupils equal and round no pallor or injection ENT, Mouth: Mucous membranes moist Respiratory: There are no retractions, lungs are clear to auscultation Cardiovascular: Regular rate and rhythm Gastrointestinal: G-tube dislodged from abdomen, no acute tenderness, normal bowel sounds Neurological: Underline movement disorder consistent with contents disease, nonverbal Skin: Warm and dry, no rashes Musculoskeletal: Neck is supple nontender Extremities: symmetrical, full range of motion Constitutional: Initial Vital Signs Temperature (C) 36.6 C 09/21/17 15:08 Heart Rate 87 09/21/17 15:08 Respiratory Rate 16 09/21/17 15:08 Blood Pressure 126/82 H 09/21/17 15:08 O2 Sat (%) 94 09/21/17 15:08 O2 Delivery Mode Room Air Allergies/Adverse Reactions: No Known Allergies Allergy (Unverified 03/19/17 17:41) Home Medications: Medication Instructions Recorded Acetaminophen [Tylenol 325mg (*)] 650 mg PO BID 03/17/17 Cholecalciferol (Vitamin D3) 50,000 unit PO .MONTHLY 03/17/17 [Optimal D3] Haloperidol [Haldol 5 MG (*)] 5 mg PO DAILY 03/17/17 Hydrocodone/Acetaminophen [[place] 1 each PO Q4 PRN 03/17/17 5/325 (*)] Loratadine [Claritin] 10 mg PO DAILY PRN 03/17/17 Mineral Oil/Petrolatum,White 1 karen TP BID 03/17/17 [Eucerin Cream (*)] Acetaminophen [Tylenol 325mg (*)] 650 mg TUBE Q4 PRN #0 tab 03/22/17 Amox Tr/Potassium Clavulanate 875 mg TUBE BID #6 bottle 03/22/17 [Augmentin 400MG/5ML (*)] Medical Decision Making ED Course/Re-evaluation: I attempted to replace the patient's G-tube however was not successful giving his abdominal musculature spasm. I did order a G tube be replaced under interventional radiology. This was done without complication. The patient returned from interventional Radiology 4:00 p.m.. He is in no acute distress. His G-tube is functioning. The patient will be discharged back to his residential facility. Departure - Departure Disposition: Home, Routine, Self-Care Clinical Impression: Malfunction of gastrostomy tube, Huntingtons chorea Condition: Good Instructions: How to Use and Care for Your PEG Tube (ED) Additional Instructions: 1. Return to the emergency department for any abdominal pain, fever or vomiting. 2. Follow up with your the physician as scheduled.
[2017-09-21 17:46] VITALS: BP 130/90; PULSE 80; TEMP 96.8; O2SAT 98
--- NOTE | 2017-09-21 18:24 | ASDISCHSUM ---
Discharge Information Plan Status:SNF Medically Cleared to Leave: Discharge Date:09/21/2017 05:46 PM D/C Disposition:[facility] Facility ADT D/C Disposition:Home, Routine, Self-Care Projected Discharge Date:09/21/2017 05:46 PM Transportation at D/C:ALS/BLS Discharge Delay Reason: Follow-Up Date:09/21/2017 05:46 PM Discharge Slot: Final Diagnosis: Placement Information Patient Contact Information Contact Name:REGIS Relationship:Legal guardian Address:[facility] [address] Work Phone: City:[place] Alternate Phone: [facility]/Zip Code:[place] [address] Email: Financial Information Financial Class: Primary Plan Desc:MEDICARE OUTPATIENT Primary Plan Number:[id number] Secondary Plan Desc:MEDICAID [facility] Secondary Plan Number:[id number] Assessment Information Intervention Information Intervention Type:Transportation Date of Service:09/21/2017 06:22 PM Patient Type:Emergency Room Staff Member:MOSHE Huitron Sharon Hours:0.5 Discipline:Bridge Gang Worker Severity: Comment:Arranged non-emergent stretcher transp ort for patient to return to [place]. PCS completed, copy provided to EMS, original placed in bin to be scanned into chart. This RN gave repor t to Faby Das
== END 2017-09-21 17:46 | disposition home or self-care (01) ==
LOC: EDUNIT# → EDBD
PROC: 0DH63UZ Insertion of Feeding Device into Stomach, Percutaneous Approach (ICD-10-PCS; principal; 2017-09-21)
DX: K94.23 Gastrostomy malfunction (principal); G10 Huntington's disease; G20 Parkinson's disease; F02.80 Dementia in other diseases classified elsewhere, unspecified severity, without behavioral disturbance, psychotic disturbance, mood disturbance, and anxiety

== ENCOUNTER 2018-12-19 08:00 | Emergency (ER) | payer OTHER, MEDICAID ==
--- NOTE | 2018-12-19 08:09 | EDPHY ---
H & P Time Seen by Provider: 12/19/18 08:05 HPI/ROS: CHIEF COMPLAINT: G-tube fell out HISTORY OF PRESENT ILLNESS: The patient is a 48-year-old male brought in by paramedics after his G-tube fell out. The patient has a history of Hiram' s chorea. His skilled nurse was unable to replace the tube at his living facility. The patient has had a history of a prior episode in 2017 which required interventional radiology's assistance secondary to abdominal spasm. The patient and self is nonverbal. There has been no history of fever, vomiting or a perception of increasing pain by custodial staff. REVIEW OF SYSTEMS: A comprehensive 10 point review of systems is otherwise negative aside from elements mentioned in the history of present illness. Exam Limitations: Physical impairment - Medical/Surgical History Hx Asthma: No Hx Chronic Respiratory Disease: No Hx Diabetes: No Hx Cardiac Disease: No Hx Renal Disease: No Hx Cirrhosis: No Hx Alcoholism: No Hx HIV/AIDS: No Hx Splenectomy or Spleen Trauma: No Other PMH: Huntingtons, parkinsonism, generalized anxiety, dysphagia, contracture - Social History Smoking Status: Unknown if ever smoked - Physical Exam Exam: General Appearance: Thin cachectic male, Eyes: Pupils equal and round no pallor or injection ENT, Mouth: Mucous membranes moist Respiratory: There are no retractions, lungs are clear to auscultation no acute distress Cardiovascular: Regular rate and rhythm Gastrointestinal: G-tube is been dislodged, abdomen is soft, fairly significant muscle contracture Neurological: At baseline with fairly abnormal neurologic examination secondary to his Hiram's disease. Skin: Warm and dry, no rashes Musculoskeletal: Neck is supple nontender Extremities: symmetrical, full range of motion Constitutional: Initial Vital Signs Temperature (C) 36.8 C 12/19/18 08:09 Heart Rate 92 12/19/18 08:09 Respiratory Rate 18 12/19/18 08:09 Blood Pressure 101/69 12/19/18 08:09 O2 Sat (%) 94 12/19/18 08:09 O2 Delivery Mode Room Air Allergies/Adverse Reactions: No Known Allergies Allergy (Unverified 03/19/17 17:41) Home Medications: Medication Instructions Recorded Acetaminophen [Tylenol 650/20.3ML 12/19/18 Oral Liq (*)] Loperamide 12/19/18 Valium 12/19/18 morphINE SR 12/19/18 Medical Decision Making ED Course/Re-evaluation: I evaluated the patient and attempted to replace the G-tube min was unsuccessful. I will have the patient go to interventional radiology for a G- tube replacement. The patient's tube was replaced at the bedside by the interventional radiologist. A Gastrografin KUB x-ray demonstrates normal placement the tube in the lumen of the stomach. The patient will be discharged to home. Departure - Departure Disposition: Home, Routine, Self-Care Clinical Impression: Dislodged gastrostomy tube Condition: Good Instructions: Percutaneous Endoscopic Gastrostomy Insertion (DC) Additional Instructions: 1. Return to the ED for fever, vomiting, abdominal pain or other concerns. Referrals: ODETTE BYRD [Primary Care Provider] - As per Instructions
[2018-12-19] MEDS ORDERED: IOPAMIDOL (ISOVUE-300) 100 ML BTL ONE (09:55)
[2018-12-19 10:34] VITALS: BP 110/68
== END 2018-12-19 10:33 | disposition home or self-care (01) ==
LOC: EDUNIT#
PROC: 0DH67UZ Insertion of Feeding Device into Stomach, Via Natural or Artificial Opening (ICD-10-PCS; principal; 2018-12-19)
DX: K94.23 Gastrostomy malfunction (principal); G10 Huntington's disease; G20 Parkinson's disease
CPT/HCPCS: 49450; 74018; 76000; 99284; C1769; Q9967

== ENCOUNTER 2018-12-25 00:49 | Emergency (ER) | payer OTHER, MEDICAID ==
--- NOTE | 2018-12-25 00:56 | EDPHY ---
H & P Time Seen by Provider: 12/25/18 00:53 HPI/ROS: HPI CHIEF COMPLAINT: G-tube fell out HISTORY OF PRESENT ILLNESS: 48-year-old male, history of [place]'s chorea, at his baseline neurological status, nonverbal, presents emergency room from [place] by EMS to have his G-tube replaced. According to EMS G-tube fell out at some point. All upon review of his medical records he had his G-tube replaced twice and this was under IR guidance as they had great difficulty placing at last time due to abdominal musculature spasm. Patient arrives in no acute distress. He has a PEG tube site left upper abdomen that looks clean, no signs of infection. Will attempt to try to place a 20 [place] PEG tube which was recently placed on December 19. Past Medical History: Ysabel's, hypernatremia, dysphagia, aspiration pneumonia Past Surgical History: Peg tube Social History: Resides at [place] Family History: Noncontributory ROS REVIEW OF SYSTEMS: 10 Systems were reviewed and negative with the exception of the elements mentioned in the history of present illness. Exam Constitutional triage nursing summary reviewed, vital signs reviewed, awake/ alert. Eyes normal conjunctivae and sclera, EOMI, PERRLA. HENT normal inspection, atraumatic, moist mucus membranes, no epistaxis, neck supple/ no meningismus, no raccoon eyes. Respiratory clear to auscultation bilaterally, normal breath sounds, no respiratory distress, no wheezing. Cardiovascular rate normal, regular rhythm, no murmur, no edema, distal pulses normal. Gastrointestinal peg tube site clean, dry, no signs of infection, soft, non- tender, no rebound, no guarding, normal bowel sounds, no distension, no pulsatile mass. Genitourinary no CVA tenderness. Musculoskeletal no midline vertebral tenderness, full range of motion, no calf swelling, no tenderness of extremities, no meningismus, good pulses, neurovascularly intact. Skin pink, warm, & dry, no rash, skin atraumatic. Neurologic at neurological baseline nonverbal. Psychiatric normal mood/affect. Heme/Lymph/Immune no lymphadenopathy. Differential Diagnosis: Need for new PEG tube. Peg tube malfunction Medical Decision Making: Plan for this patient will attempt to get 20 Israeli PEG tube and replace it here in emergency room. Re-evaluation: I was unable to pass a 20 Israeli PEG tube as it would not past the opening of the abdominal wall. I was able to pass an 18 Israeli peg tube without difficulty. Gastric contents was aspirated from this [address] with a KUB with Gastrografin. KUB reviewed with Gastrografin shows good contrast in the stomach with rugated present. I was able to aspirate with a 60 cc syringe good gastric contents. X-ray results faxed to me by direct Radiology at 4:08 a.m. Feeding tube in the stomach with no evidence of extravasation. Patient can be safely discharged back to [place]. Hospice Care nurse at bedside. Source: Patient, EMS - Medical/Surgical History Hx Asthma: No Hx Chronic Respiratory Disease: No Hx Diabetes: No Hx Cardiac Disease: No Hx Renal Disease: No Hx Cirrhosis: No Hx Alcoholism: No Hx HIV/AIDS: No Hx Splenectomy or Spleen Trauma: No Other PMH: Huntingtons, parkinsonism, generalized anxiety, dysphagia, contracture - Social History Smoking Status: Unknown if ever smoked Constitutional: Initial Vital Signs Temperature (C) 36.7 C 12/25/18 00:56 Heart Rate 61 12/25/18 00:56 Respiratory Rate 16 12/25/18 00:56 Blood Pressure 108/76 12/25/18 00:56 O2 Sat (%) 98 12/25/18 00:56 O2 Delivery Mode Room Air Allergies/Adverse Reactions: No Known Allergies Allergy (Unverified 03/19/17 17:41) Home Medications: Medication Instructions Recorded Acetaminophen [Tylenol 650/20.3ML 12/19/18 Oral Liq (*)] Loperamide 12/19/18 Valium 12/19/18 morphINE SR 12/19/18 Medical Decision Making - Diagnostics Imaging Results: Imaging Impressions Abdomen X-Ray 12/25/18 01:08 Impression: PEG tube in the stomach. Departure - Departure Disposition: Home, Routine, Self-Care Clinical Impression: PEG tube malfunction Condition: Good Instructions: How to Use and Care for Your PEG Tube (ED) Referrals: Patient,NotPresent [Unknown] - As per Instructions
[2018-12-25 04:56] VITALS: BP 110/77
== END 2018-12-25 04:54 | disposition home or self-care (01) ==
LOC: EDUNIT#
PROC: 0DH67UZ Insertion of Feeding Device into Stomach, Via Natural or Artificial Opening (ICD-10-PCS; principal; 2018-12-25)
DX: K94.23 Gastrostomy malfunction (principal); G10 Huntington's disease; G20 Parkinson's disease